=== PATIENT | female | born 1965 | race Caucasian/White ===

== ENCOUNTER 2025-07-02 18:20 | Emergency (ER) | payer OTHER, SELFPAY ==
[2025-07-02 18:21] VITALS: BP 99/75; PULSE 87; RESP 18; TEMP 36.4; O2SAT 99
[2025-07-02 18:25] VITALS: BMI 22.7
--- NOTE | 2025-07-02 19:13 | RAD_ITS ---
PROCEDURE: RAD/Chest 1 View (Portable)
[2025-07-02 19:21] VITALS: BP 106/89; PULSE 84; RESP 12; O2SAT 100
[2025-07-02 19:46] LABS: Hematocrit 41.9 % (37-47); Hemoglobin 14.3 g/dL (12.0-15.0); Immature Granulocytes Count 0.020 X10^3/uL (0.0-0.0); Mean Corp Hgb Conc 34.1 g/dL (32-36); Mean Corpuscular Volume 90.9 fL (81-99); Mean Platelet Vol. 9.6 fl (6.2-12.0); NRBC Flagged by Analyzer 0 % (0-5); Platelet Count 237 K/mm3 (150-450); RBC Distribution Width CV 12.2 % (11.6-14.6); RBC Distribution Width SD 40.2 fl (35.1-43.9); Red Blood Count 4.61 M/mm3 (4.2-5.4); White Blood Count 7.0 K/mm3 (4.4-11.0)
[2025-07-02 19:50] LABS: Anion Gap 11 (5-15); BUN 30 mg/dL (4-19); BUN/Creat Ratio 28.4 RATIO (10-20); Calcium,Total 10.1 mg/dL (7.6-11.0); Carbon Dioxide 25.3 mmol/L (21.0-32.0); Chloride 99 mmol/L (98-108); Estimated Creatinine Clearance 61.43 ml/min (50-250); Glucose 94 mg/dL (70-99); Potassium 4.3 mmol/L (3.3-5.1)
[2025-07-02 19:56] VITALS: BP 112/84; PULSE 84; RESP 22; O2SAT 100
[2025-07-02 20:00] VITALS: BP 104/86; PULSE 75; RESP 18; O2SAT 100
--- NOTE | 2025-07-02 20:26 | EX.ED.DYSGE1 ---
HPI History of Present Illness Chief Complaint: Syncope Informant: patient and spouse/S.O. Narrative Narrative: 60-year-old female came to the emergency room with her who sustained a head injury and facial lacerations. While in triage the patient had a syncopal episode. She states she can begin to get very hot and had a brief syncopal episode. She denies any chest pain or shortness of breath prior. She states she is feeling much better now. No significant medical history. She has no known cardiac history or history of syncope. PFSH PFSH Allergy/AdvReac Type Severity Reaction Status Date / Time No Known Allergies Allergy Verified 07/02/25 18:21 Social History Smoking Status: Never smoker ROS ROS ED Constitutional Constitutional ED: Denies chills or weight loss Eyes Eyes: Denies change in vision or diplopia ENT ENT ED: Denies ear pain, rhinorrhea or sore throat Cardiovascular Cardiovascular: Reports other Details: Syncope ; Denies chest pain, orthopnea, palpitations or racing heartbeat Respiratory/Chest Respiratory/Chest: Denies cough, dyspnea or orthopnea Gastrointestinal Gastrointestinal: Denies abdominal pain, diarrhea, nausea or vomiting Genitourinary Genitourinary ED: Denies dysuria, hematuria or urinary frequency Musculoskeletal Musculoskeletal: Denies arthralgias or myalgias Integumentary Denies abscess or rash Neurologic Neurologic: Denies headache(s) or weakness Psychiatric Psychiatric: Denies anxiety, depression, suicidal ideation or suicidal thoughts Endocrine Endocrinology: Denies polydipsia, polyphagia or polyuria Allergic/Immunologic Allergic/Immunologic ED: Denies mouth swelling, tongue swelling or urticaria EXAM Physical Exam Const Vital Signs: 07/02/25 18:21 07/02/25 18:21 07/02/25 19:21 Temperature 97.5 F L Temperature Source Oral Pulse Rate 87 84 Respiratory Rate 18 12 Respiratory Effort Normal Non-Labored Respiratory Pattern Normal Blood Pressure 99/75 106/89 H Blood Pressure Mean 83 94 Pulse Ox 99 100 Oxygen Delivery Method Room Air Room Air 07/02/25 19:56 07/02/25 20:00 Temperature Temperature Source Pulse Rate 84 75 Respiratory Rate 22 H 18 Respiratory Effort Respiratory Pattern Blood Pressure 112/84 H 104/86 H Blood Pressure Mean 91 93 Pulse Ox 100 100 Oxygen Delivery Method Positive well nourished and well developed General Appearance ED: well developed and NAD HEENT Reports normocephalic, head/scalp atraumatic and moist mucous membranes Eyes PERRL and EOMs intact bilaterally Neck no lymphadenopathy, supple and no JVD Resp normal respiratory effort and clear to auscultation bilaterally Cardio regular rate, regular rhythm and no murmurs GI normal to inspection, nondistended, normoactive bowel sounds and non-tender Palpation: soft Back/Spine no CVA tenderness and normal ROM Extremity normal to inspection General Extremety ED: Negative for edema General Extremity: Negative for edema Neuro oriented x3 and CN's II-XII intact bilaterally Sensorium / Orientation: alert Motor Exam: strength 5/5 throughout Psych mental status grossly normal Mood & Affect: Negative for depressed or tearful Skin no rashes or lesions noted and no wounds MDM MDM MDM Narrative Medical decision making narrative: Differential diagnosis includes but not limited to dehydration electrolyte abnormalities cardiac dysrhythmia anemia dissection aneurysm Plan of interpretation of the chest x-ray is no acute process. On the monitor the patient is in a sinus rhythm and has not had any dysrhythmias. The EKG is a normal sinus rhythm with no evidence of preexcitation or prolonged QT. BUN noted to be 30 with a creatinine 1.04. Normal electrolytes. Hemoglobin 14.3. Clinically I think the patient most likely had a vagal episode. I think she is stable for discharge. Return if worsening or concerns History & Record Review Discussion w/independent historian: Patient and Significant other Lab Data Attestation: I reviewed the patient's lab results. Labs: Laboratory Results - last 24 hr 07/02/25 19:30 WBC 7.0 RBC 4.61 Hgb 14.3 Hct 41.9 MCV 90.9 MCH 31.0 MCHC 34.1 RDW Std Deviation 40.2 RDW Coeff of Bassem 12.2 Plt Count 237 MPV 9.6 Immature Gran % (Auto) 0.300 Neut % (Auto) 65.3 Lymph % (Auto) 22.6 Walsh % (Auto) 9.5 Eos % (Auto) 1.6 Baso % (Auto) 0.7 Absolute Neuts (auto) 4.6 Absolute Lymphs (auto) 1.57 Nucleated RBC % 0 Sodium 136 Potassium 4.3 Chloride 99 Carbon Dioxide 25.3 Anion Gap 11 BUN 30 H Creatinine 1.04 Estim Creat Clear Calc 61.43 Est GFR (MDRD) Non-Af 61 BUN/Creatinine Ratio 28.4 H Glucose 94 Calcium 10.1 Radiography Diagnostic Testing: Clinical Impression(s) from Imaging Studies Chest X-Ray 07/02/25 19:13 IMPRESSION: No acute cardiopulmonary disease. Reading Location: [facility] EKG Initial EKG: Attestation: I personally reviewed and interpreted this EKG as follows: Comments: Normal sinus rhythm ventricular rate of 68 bpm Discharge Plan Triage Chief Complaint: Syncope ED Provider: Lorenzo Amaya Dx/Rx/DC Orders Clinical Impression: Syncope Instructions: ED Fainting, Vagal Reaction Primary Care Provider: Sandip Lema Referrals: Sandip Lema MD [Primary Care Provider, Family Practice] - As Needed Print Language: Citizen Of [place] Disposition Disposition: Home, Self Care Discharge Date/Time: 07/02/25 20:38
== END 2025-07-02 20:38 | disposition home or self-care (01) ==
PROVIDERS: Emergency Provider Emergency Medicine; PCP Family Medicine; Visit Provider Emergency Medicine
DX: R55 Syncope and collapse (principal)
CPT/HCPCS: 71045; 80048; 85025; 93005; 99284